=== PATIENT | male | born 1970 | race Caucasian/White ===

== ENCOUNTER 2018-01-26 05:36 | Inpatient (IN) | payer MEDICARE ==
[~2018-01-26] VITALS: Ht 185.4 cm; Wt 171.5 kg
[~2018-01-26 05:36] MED LIST: AMIT25TA9 PO; ATOR40TA16 PO; DICY10CA12 PO; FENO145T2 PO; FLUO20CA12 PO; GABA300C5 PO; HYDR12.57 PO; LISI30TA4 PO; LITH300T PO; LORA1TAB12 PO; METF1000 PO; METO1TAB42 PO; MORP1TAB25 PO; NOVOLOGMXP SQ; OMEP20TA93 PO; OXYC1TAB63 PO; PRAZ2 PO; PRAZ2CAP PO; QUET1TAB10 PO; SYMB80AE INH; VENTAER INH; ZOLP10TA3 PO
[2018-01-26] MEDS ORDERED: CHLORHEXIDINE GLUCONATE 2 % 1 PACK (2 CLOTHS) TOPICAL PRN (06:15)
[2018-01-26] MEDS ORDERED: POVIDONE IODINE 5% (ANTISEPSIS KIT) 4 APPLICATIONS EACH NARE PRN (06:15)
[2018-01-26] MEDS ORDERED: SODIUM CHLORID 0.9% 500 ML IV PRN (06:15)
[2018-01-26] MEDS ORDERED: METOPROLOL TARTRATE 25 MG TAB PO PRN (06:15)
[2018-01-26] MEDS ORDERED: LACTATED RINGER'S 1000 ML IV PRN (06:15)
[2018-01-26] MEDS ORDERED: ceFAZolin 2 GM PREMIX 50 ML IV SCH (06:30)
[2018-01-26] MEDS ORDERED: SCOPOLAMINE 1.5 MG PATCH T-DERMAL SCH (06:30)
[2018-01-26] MEDS ORDERED: APREPITANT 40 MG CAP PO SCH (06:30)
[2018-01-26] MEDS ORDERED: metroNIDAZOLE 500 MG INJ 100 ML IV SCH (06:30)
[2018-01-26] MEDS ORDERED: ACETAMINOPHEN 1000 MG/100 ML 100 ML IV SCH (06:30)
[2018-01-26] MEDS ORDERED: ONDANSETRON HCL 4 MG/2 ML VIAL IV PUSH SCH (06:30)
[2018-01-26] MEDS ORDERED: BUPIVACAINE/EPINEPHRINE 0.25% PF 10 ML VIAL ONE (08:20)
[2018-01-26] MEDS ORDERED: NEOSTIGMINE 5 MG/5 ML SYRINGE IV PUSH ONE (12:00)
[2018-01-26] MEDS ORDERED: PROPOFOL 200 MG/20 ML AMP IV ONE (12:00)
[2018-01-26] MEDS ORDERED: GLYCOPYRROLATE 1 MG/5 ML SYRINGE IV PUSH ONE (12:00)
[2018-01-26] MEDS ORDERED: ROCURONIUM INJ 50 MG/5 ML SYRINGE IV PUSH ONE (12:00)
[2018-01-26] MEDS ORDERED: ONDANSETRON HCL 4 MG/2 ML VIAL IV PUSH ONE (12:00)
[2018-01-26] MEDS ORDERED: ePHEDrine/NS 25 MG/5 ML SYRINGE IV ONE (12:00)
[2018-01-26] MEDS ORDERED: LIDOCAINE HCL 1% PF 5 ML SYRINGE OTHER ONE (12:00)
[2018-01-26] MEDS ORDERED: LACTATED RINGER'S 1000 ML INJ 1,000 ML IV ONE (12:00)
[2018-01-26] MEDS ORDERED: PHENYLEPHRINE HCL 10 MG/ML VIAL IV ONE (12:00)
[2018-01-26] MEDS ORDERED: PHENYLEPH/NS 1000 MCG/10 ML SYR IV ONE (12:00)
[2018-01-26] MEDS ORDERED: ENALAPRILAT 1.25 MG/ML VIAL IV PUSH PRN (13:00)
[2018-01-26] MEDS ORDERED: diphenhydrAMINE HCL 50 MG/ML VIAL IV PUSH PRN (13:00)
[2018-01-26] MEDS ORDERED: NALOXONE HCL 0.4 MG/ML AMP IV PUSH PRN (13:00)
[2018-01-26] MEDS ORDERED: diphenhydrAMINE HCL ELIXIR 12.5 MG/5 ML CUP PO PRN (13:00)
[2018-01-26] MEDS ORDERED: SODIUM CHLORIDE 0.9% FLUSH 10 ML FLUSH IV FLUSH PRN (13:00)
[2018-01-26] MEDS: 1/2 NS + KCL 20 MEQ INJ 1,000 ML IV SCH ×2 (13:30→21:40)
[2018-01-26] MEDS ORDERED: Post-op Orders (for Pharmacy) OTHER ONE (13:32)
[2018-01-26] MEDS ORDERED: DO NOT ADM ANY ANTICOAGULANT DRUGS PRN (13:32)
[2018-01-26] MEDS ORDERED: MIDAZOLAM HCL 2 MG/2 ML VIAL ONE (13:40)
[2018-01-26] MEDS: PCA - TOTAL MG MORPHINE DELIVERED PER SHIFT SCH ×2 (14:00→22:00)
[2018-01-26] MEDS: METOCLOPRAMIDE HCL 10 MG/2 ML VIAL IV PUSH SCH ×2 (14:00→21:41)
[2018-01-26] MEDS: MORPHINE SULFATE 30 MG/30 ML PCA IV SCH (14:16)
[2018-01-26 15:00] VITALS: BP 167/76; PULSE 85; RESP 17; TEMP 95.7; O2SAT 98
[2018-01-26] MEDS: ONDANSETRON HCL 4 MG/2 ML VIAL IV PUSH PRN ×2 (15:29→23:34)
[2018-01-26] MEDS: ENOXAPARIN SODIUM 40 MG/0.4 ML SYRINGE SQ SCH (16:36)
[2018-01-26] MEDS: metroNIDAZOLE 500 MG INJ 100 ML IV SCH (17:25)
[2018-01-26] MEDS: ACETAMINOPHEN 1000 MG/100 ML 100 ML IV SCH ×2 (18:00→23:34)
[2018-01-26 20:00] VITALS: BP 159/77; PULSE 72; RESP 17; TEMP 98; O2SAT 97
[2018-01-26] MEDS: RESP: ALBUTEROL 2.5 MG/3 ML NEB (SCH) INH ×2 (20:57→23:58)
[2018-01-26] MEDS: SODIUM CHLORIDE 0.9% FLUSH 10 ML FLUSH IV FLUSH SCH (21:41)
[2018-01-27] VITALS (7 sets, daily range): BP systolic 138–182; BP diastolic 66–80; PULSE 61–84; RESP 17–18; TEMP 97.8–98.3; O2SAT 94–98
[2018-01-27] MEDS: metroNIDAZOLE 500 MG INJ 100 ML IV SCH ×2 (01:48→09:36)
[2018-01-27] MEDS: METOCLOPRAMIDE HCL 10 MG/2 ML VIAL IV PUSH SCH ×4 (01:48→20:02)
[2018-01-27] MEDS: RESP: ALBUTEROL 2.5 MG/3 ML NEB (SCH) INH ×5 (03:57→16:40)
[2018-01-27] MEDS: 1/2 NS + KCL 20 MEQ INJ 1,000 ML IV SCH ×3 (05:50→18:23)
[2018-01-27] MEDS: PCA - TOTAL MG MORPHINE DELIVERED PER SHIFT SCH ×3 (05:55→22:00)
[2018-01-27] MEDS: ACETAMINOPHEN 1000 MG/100 ML 100 ML IV SCH ×2 (05:56→15:16)
[2018-01-27 06:13] LABS: AUTOMATED NEUTROPHIL # 7.3 TH/MM3 (1.8-7.7); BASOPHIL % 0.4 % (0.0-2.0); EOSINOPHIL % 0.2 % (0.0-4.0); HEMATOCRIT 38.7 % (39.0-51.0); LYMPH % 10.7 % (9.0-44.0); MEAN CELL VOLUME 85.9 FL (80.0-100.0); MEAN CORPUSCULAR HEMOGLOBIN 28.8 PG (27.0-34.0); MEAN CORPUSCULAR HGB CONC 33.6 % (32.0-36.0); MEAN PLATELET VOLUME 8.4 FL (7.0-11.0); MONO % 8.2 % (0.0-8.0); MONOCYTE # 0.8 TH/MM3 (0-0.9); NEUT % 80.5 % (16.0-70.0); PLATELET COUNT 367 TH/MM3 (150-450); RED BLOOD COUNT 4.51 MIL/MM3 (4.50-5.90); RED CELL DISTRIBUTION WIDTH 14.1 % (11.6-17.2); WHITE BLOOD COUNT 9.1 TH/MM3 (4.0-11.0)
[2018-01-27 06:34] LABS: BICARBONATE 26.5 MEQ/L (21.0-32.0); CREATININE 1.01 MG/DL (0.60-1.30); MAGNESIUM 2.1 MG/DL (1.5-2.5)
[2018-01-27] MEDS: MORPHINE SULFATE 30 MG/30 ML PCA IV SCH ×2 (06:50→19:58)
[2018-01-27] MEDS: PANTOPRAZOLE SOD 40 MG DELAYED RELEASE TAB PO SCH (08:20)
[2018-01-27] MEDS: SODIUM CHLORIDE 0.9% FLUSH 10 ML FLUSH IV FLUSH SCH ×2 (08:21→20:02)
[2018-01-27] MEDS ORDERED: DEXTROSE 50% IN WATER 50 ML VIAL(D50) IV PUSH PRN (09:15)
[2018-01-27] MEDS ORDERED: GLUCAGON 1 MG/ML VIAL OTHER PRN (09:15)
[2018-01-27] MEDS ORDERED: LORazepam 1 MG TAB PO PRN (09:30)
[2018-01-27] MEDS: HYOSCYAMINE 0.125 MG TAB PO SCH ×5 (09:36→23:53)
[2018-01-27] MEDS ORDERED: PROMETHAZINE HCL 25 MG SUPP RECTAL PRN (09:45)
--- NOTE | 2018-01-27 09:57 | HHI.PR ---
Subjective Subjective Notes C/O persistent nausea despite antiemetics Passing flatus Objective Vitals/I&O Vital Signs Date Time Temp Pulse Resp B/P (MAP) Pulse Ox O2 Delivery O2 Flow Rate FiO2 01/27/18 06:50 18 01/27/18 04:00 97.8 72 138/74 (95) 98 01/26/18 20:59 21 01/26/18 14:15 Nasal Cannula 2 Labs Laboratory Tests Test 01/27/18 04:06 01/27/18 04:16 White Blood Count 9.1 Red Blood Count 4.51 Hemoglobin 13.0 Hematocrit 38.7 Mean Corpuscular Volume 85.9 Mean Corpuscular Hemoglobin 28.8 Mean Corpuscular Hemoglobin Concent 33.6 Red Cell Distribution Width 14.1 Platelet Count 367 Mean Platelet Volume 8.4 Neutrophils (%) (Auto) 80.5 Lymphocytes (%) (Auto) 10.7 Monocytes (%) (Auto) 8.2 Eosinophils (%) (Auto) 0.2 Basophils (%) (Auto) 0.4 Neutrophils # (Auto) 7.3 Lymphocytes # (Auto) 1.0 Monocytes # (Auto) 0.8 Eosinophils # (Auto) 0.0 Basophils # (Auto) 0.0 CBC Comment DIFF FINAL Differential Comment Blood Urea Nitrogen 15 Creatinine 1.01 Random Glucose 210 Calcium Level 9.0 Magnesium Level 2.1 Sodium Level 136 Potassium Level 4.0 Chloride Level 101 Carbon Dioxide Level 26.5 Anion Gap 9 Estimat Glomerular Filtration Rate 79 Cardiovascular: Regular Lungs: Clear Abdomen: Post-op tenderness Extremities: Perfused Wound Wound : Wound Location: Abdomen Appearance: Clean & Dry A/P Assessment and Plan 47yo M POD#1 Laparoscopic RnY -hyoscyamine and promethazine IA added for nausea, change metoclopramide to scheduled -Transition to oral pain control -Carafate for pain with swallowing, pt did have frequent bouts of vomiting last night Discharge Planning Depending on hospital course but most likely tomorrow Reina Barnes Jan 27, 2018 09:57
[2018-01-27] MEDS: PRAZOSIN HCL 2 MG CAP PO SCH ×2 (10:52→21:00)
[2018-01-27] MEDS: LISINOPRIL 10 MG TAB PO SCH (10:52)
[2018-01-27] MEDS: LITHIUM CARBONATE 300 MG SLOW RELEASE TAB PO SCH ×2 (10:52→20:03)
[2018-01-27] MEDS: BUDESONIDE-FORMOTEROL 80/4.5 MCG INHALER INH SCH ×2 (10:53→20:02)
[2018-01-27] MEDS: METOPROLOL SUCCINATE 25 MG EXTENDED RELEASE TAB PO SCH (10:53)
[2018-01-27] MEDS: metFORMIN HCL 500 MG TAB PO SCH ×2 (10:53→16:57)
[2018-01-27] MEDS: MORPHINE SULFATE 30 MG CONTROLLED RELEASE TAB PO SCH (10:53)
[2018-01-27] MEDS: FLUoxetine HCL 20 MG CAP PO SCH (10:53)
[2018-01-27] MEDS ORDERED: DEXAMETHASONE SOD PHOS 20 MG/5 ML VIAL IV PUSH ONE (11:00)
[2018-01-27] MEDS: SUCRALFATE 1 GM/10 ML CUP PO SCH ×4 (11:01→20:02)
[2018-01-27] MEDS: QUEtiapine FUMARATE 300 MG TAB PO SCH (12:00)
[2018-01-27] MEDS: INSULIN ASPART SUPPLEMENTAL SCALE SQ SCH ×3 (12:00→23:54)
[2018-01-27] MEDS ORDERED: ACETAMINOPHEN 325MG/HYDROcodone 7.5MG/15ML UDC PO PRN ×2 (13:00)
[2018-01-27] MEDS ORDERED: METOCLOPRAMIDE HCL 10 MG/2 ML VIAL IV PUSH PRN (14:00)
[2018-01-27] MEDS: ENOXAPARIN SODIUM 40 MG/0.4 ML SYRINGE SQ SCH (16:58)
[2018-01-27] MEDS ORDERED: PRAZOSIN HCL 2 MG CAP PO SCH (21:00)
[2018-01-27] MEDS ORDERED: AMITRIPTYLINE HCL 25 MG TAB PO SCH (21:00)
[2018-01-28] VITALS: BP 154/69; PULSE 70; RESP 18; TEMP 97.3; O2SAT 96
[2018-01-28] MEDS: METOCLOPRAMIDE HCL 10 MG/2 ML VIAL IV PUSH SCH ×3 (02:15→12:22)
[2018-01-28] MEDS: 1/2 NS + KCL 20 MEQ INJ 1,000 ML IV SCH ×2 (02:16→12:25)
[2018-01-28] MEDS: RESP: ALBUTEROL 2.5 MG/3 ML NEB (SCH) INH ×4 (04:00→11:11)
[2018-01-28] MEDS: HYOSCYAMINE 0.125 MG TAB PO SCH ×4 (04:48→16:39)
[2018-01-28] MEDS: PCA - TOTAL MG MORPHINE DELIVERED PER SHIFT SCH (04:49)
[2018-01-28 08:00] VITALS: BP 128/61; PULSE 67; RESP 17; TEMP 97.5; O2SAT 95
[2018-01-28] MEDS: SUCRALFATE 1 GM/10 ML CUP PO SCH ×3 (08:23→16:39)
[2018-01-28] MEDS: PRAZOSIN HCL 2 MG CAP PO SCH (08:24)
[2018-01-28] MEDS: metFORMIN HCL 500 MG TAB PO SCH ×2 (08:24→16:39)
[2018-01-28] MEDS: FLUoxetine HCL 20 MG CAP PO SCH (08:24)
[2018-01-28] MEDS: PANTOPRAZOLE SOD 40 MG DELAYED RELEASE TAB PO SCH (08:25)
[2018-01-28] MEDS: SODIUM CHLORIDE 0.9% FLUSH 10 ML FLUSH IV FLUSH SCH (08:25)
[2018-01-28] MEDS: LISINOPRIL 10 MG TAB PO SCH (08:25)
[2018-01-28] MEDS: METOPROLOL SUCCINATE 25 MG EXTENDED RELEASE TAB PO SCH (08:25)
[2018-01-28] MEDS: MORPHINE SULFATE 30 MG CONTROLLED RELEASE TAB PO SCH (08:25)
[2018-01-28] MEDS: LITHIUM CARBONATE 300 MG SLOW RELEASE TAB PO SCH (08:25)
[2018-01-28] MEDS: QUEtiapine FUMARATE 300 MG TAB PO SCH (08:25)
[2018-01-28] MEDS: BUDESONIDE-FORMOTEROL 80/4.5 MCG INHALER INH SCH (08:26)
[2018-01-28] MEDS: INSULIN ASPART SUPPLEMENTAL SCALE SQ SCH ×3 (08:26→16:39)
[2018-01-28 12:00] VITALS: BP 106/55; PULSE 70; RESP 16; TEMP 98.6; O2SAT 95
--- NOTE | 2018-01-28 12:22 | HHI.PR ---
Subjective Subjective Notes Feeling much better today Nausea much improved, denies vomiting Tolerating PO fluids Objective Vitals/I&O Vital Signs Date Time Temp Pulse Resp B/P (MAP) Pulse Ox O2 Delivery O2 Flow Rate FiO2 01/28/18 08:00 97.5 67 17 128/61 (83) 95 01/27/18 23:53 Nasal Cannula 01/26/18 20:59 21 01/26/18 14:15 2 Cardiovascular: Regular Lungs: Clear Abdomen: Post-op tenderness Extremities: Perfused Wound Wound : Wound Location: Abdomen Appearance: Clean & Dry A/P Assessment and Plan 47yo M POD#2 Laparoscopic RnY -Continue to monitor bedside glucose, will make home recommendations based on those results -Continue with frequent ambulation -Continue to increase fluids as tolerated Discharge Planning D/C home most likely today Reina Barnes Jan 28, 2018 12:22
[2018-01-28 16:00] VITALS: BP 114/56; PULSE 64; RESP 16; TEMP 96.5; O2SAT 95
[2018-01-28] MEDS: ENOXAPARIN SODIUM 40 MG/0.4 ML SYRINGE SQ SCH (16:39)
--- NOTE | 2018-02-10 16:47 | MP ---
cc: Lul Bateman MD DATE OF OPERATION: 01/26/2018 DATE OF : 1970 DATE OF OPERATION: 01/26/2018 PREOPERATIVE DIAGNOSIS: Morbid obesity with a BMI of 50, complicated by hypercholesterolemia, type 2 diabetes, essential hypertension. POSTOPERATIVE DIAGNOSES: Morbid obesity with a BMI of 50, complicated by hypercholesterolemia, type 2 diabetes, essential hypertension. PROCEDURE PERFORMED: Laparoscopic Bishop-en-Y gastric bypass, 100 cm Bishop limb, antegastric antecolic. SURGEON: Lul Bateman MD ASSISTANT THERAPY AIDE: Dr. Jeremiah Esqueda. ANESTHESIA: General endotracheal anesthesia. ESTIMATED BLOOD LOSS: Scant. FINDINGS: Fatty liver. SPECIMEN: None. COMPLICATIONS: None. OPERATIVE PROCEDURE: The patient was given prophylactic antibiotic in pre-op holding. She was taken to the operating room and placed on the operating table in supine position. Bilateral sequential inflation devices were placed on the lower extremities. General anesthesia was instituted. A Adams catheter was placed. The abdomen was prepped and draped in a sterile fashion. The supraumbilical region was anesthetized with 0.5% Marcaine with epinephrine approximately three fingerbreadths above the umbilicus. A skin incision was made to the left of the umbilicus. A 12 mm Optiview port was placed under direct vision. A pneumoperitoneum was created. Under direct vision one 5 mm right upper quadrant port, one 12 mm right upper quadrant port, as well as one 12 mm left upper quadrant and two 5 mm left upper quadrant ports were placed. Prior to placement of all ports the skin and peritoneum was anesthetized with 0.5% Marcaine with epinephrine. The patient was placed in reverse Trendelenburg position. A Ludy-Flex retractor was placed and the liver was retracted. The gastroesophageal junction was identified. The angle of His was taken down. The lesser sac was entered on the lesser curvature approximately 5 cm distal to the gastroesophageal junction. The stomach was divided in this region with an Endo JIMMY 3.5 mm load. A gastric pouch was created angled towards the angle of His using an additional three firings of the Endo JIMMY 3.5 mm load. A 30-40 mL pouch was created. The staple line of the gastric remnant was covered with omentum. Attention was then focused on the gastrocolic ligament, and this was opened widely using the Harmonic scalpel. The transverse mesocolon was identified and was opened using the Harmonic scalpel creating a Y-defect. The ligament of Treitz was identified and brought into view. A point 50 cm distal to the ligament of Treitz was identified and the small bowel was transected in this region. The distal segment was run for a distance of 100 cm. At this point using the biliopancreatic limb an enterostomy was created with an Endo JIMMY vascular load. This defect was closed with 2-0 Vicryl running in two layers. The proximal staple line was then brought up into the upper abdomen. An enterotomy was created. A gastrotomy was created. A gastrojejunostomy was created with an Endo JIMMY 3.5 mm load creating a stoma of approximately 2 cm. This defect was closed in two layers using 2-0 Vicryl. Prior to placement of the second wave the anastomosis was tested with methylene blue. There was leakage of methylene blue along the suture lines; this was reinforced with a second wave of running 2-0 Vicryl with no further leak. Tisseel was then placed over the anastomosis. A 10 mm flat Buddy-Venegas drain was then placed posterior to the gastrojejunal anastomosis as well as the jejunostomy. The upper abdomen was irrigated with saline. The liver retractor was then removed. The pneumoperitoneum was released. All ports were removed. The MAXWELL was secured to the abdominal wall using 2-0 silk. All skin incisions were closed with 4-0 PDS. The abdomen was cleaned. A sterile dressing was placed. The patient was awakened and taken to the recovery room stable. MD ELOY Ann/LUIS , 04:19 PM , 04:46 PM
== END 2018-01-28 18:32 | disposition home or self-care (01) | DRG 621 ==
LOC: HSDI 05:36 → N07A 14:43
PROVIDERS: ADMIT Surgery; ATTEND Surgery
PROC: 0D164ZA Bypass Stomach to Jejunum, Percutaneous Endoscopic Approach (ICD-10-PCS; principal; 2018-01-26 10:26)
DX: E66.01 Morbid (severe) obesity due to excess calories (principal); E11.65 Type 2 diabetes mellitus with hyperglycemia; I12.9 Hypertensive chronic kidney disease with stage 1 through stage 4 chronic kidney disease, or unspecified chronic kidney disease; Z68.42 Body mass index [BMI] 45.0-49.9, adult; Z79.4 Long term (current) use of insulin; Z79.84 Long term (current) use of oral hypoglycemic drugs; N18.2 Chronic kidney disease, stage 2 (mild); J44.9 Chronic obstructive pulmonary disease, unspecified; Z87.891 Personal history of nicotine dependence; R11.2 Nausea with vomiting, unspecified; E78.00 Pure hypercholesterolemia, unspecified
CPT/HCPCS: 80048; 82948; 83735; 85025; 94664; J0131; J0690; J1100; J1650; J1815; J2250; J2270; J2370; J2405; J2710; J2765; J3010; J7120; J7613; J8501